=== PATIENT | female | born 1980 | race African-American/Black ===

== ENCOUNTER → 2018-11-04 | Outpatient (CLI) | payer BC ==
[~2018-11-04] MED LIST: ASPIRIN 325 MG TABLET ONE; CLOPIDOGREL BISULFATE 75 MG TABLET ONE; DIAZEPAM 10 MG TABLET. ONE; EPTIFIBATIDE BOLUS 2,000 MCG/ML 10ML VIAL. IV ONE; HEPARIN for SUB-Q USE 5,000 UNIT/ML VIAL. SQ ONE; IODIXANOL 270 MG/ML 100 ML VIAL. ONE; IV NORMAL SALINE 1000ML BAG 1,000 ML ONE; LIDOCAINE 1%/EPI 1:100,000 20 ML VIAL. ONE; MIDAZOLAM HCL/PF 2 MG/2 ML VIAL. ONE; fentaNYL PF VIAL 100 MCG/2 ML VIAL ONE; hydrALAZINE 20 MG/ML VIAL. ONE
--- NOTE | 2018-11-04 19:31 | PCVCINTER ---
EXAM: 1. AORTOGRAM AND BILATERAL LOWER EXTREMITY RUNOFF ANGIOGRAM 2. BILATERAL RENAL ANGIOGRAPHY 3. LEFT COMMON ILIAC STENT PLACEMENT. 4. LEFT EXTERNAL ILIAC STENT PLACEMENT. INDICATION: Peripheral arterial disease. Coronary artery disease. Nonhealing ulcer left lower extremity. Hypertension. Renal atherosclerosis. No prior catheter based angiographic study is available. A full diagnostic angiogram study is performed today and the decision to intervene is based on this diagnostic study. PROCEDURE: Procedure and risks of angiography and intervention including limb loss, stroke, and were discussed with the patient's family and consent obtained. The patient's right groin was prepped in the normal sterile fashion. IV conscious sedation was used throughout procedure with appropriate monitoring from 12:30 PM through 1:45 PM. Ultrasound was used to interrogate the right groin and showed the right common femoral artery to be patent. A permanent spot film was obtained. Under ultrasound guidance access into the right common femoral artery was obtained and a 5 Norwegian sheath was placed. Through this a 5 Norwegian flush catheter was placed into the abdominal aorta at the level of the renal arteries and AP aortogram was performed. Catheter was positioned at the aortic bifurcation and both oblique views of the pelvis were obtained. Catheter was positioned into the right external iliac artery and right leg runoff angiography was performed. Catheter was exchanged for a visceral catheter was placed into the right renal arteries and right renal angiograms obtained. Catheter was placed into the the left renal arteries and left renal angiograms were obtained. Catheter was advanced to the level of the left external iliac artery and left leg runoff angiography was obtained. Patient was given 4000 units of heparin. A 6 Norwegian crossover sheath was placed via the right groin to the level of the left common iliac artery. Stent placement across the areas of high-grade stenosis in the left external iliac artery was carried out with a 10 x 60 Smart control stent with subsequent dilatation to 8.0 mm. Stent placement across the areas of high-grade stenosis in the left common iliac artery was carried out with a 10 x 40 Smart control stent with subsequent dilatation to 8.0 mm. Catheters and wires removed. Sheath was removed and hemostasis obtained using the FISH device. No immediate complications. FINDINGS: Aortogram: The right kidney is atretic in only a very tiny right renal arteries present. Left renal artery is widely patent. Minimal plaque infrarenal abdominal aorta without significant stenosis. Pelvis: Right common and external iliac artery is widely patent. Diffuse high-grade stenosis left common and proximal external iliac artery. The right and left common femoral and profunda femoral arteries are patent. Right renal artery: Diminutive in size with a critical right kidney. Left renal artery: Minimal plaque proximal vessel does not cause significant stenosis. Right leg: Superficial femoral artery and popliteal artery are widely patent. Occlusion throughout the posterior tibial artery. Distal anterior tibial artery is occluded. Peroneal artery is widely patent to refill the distal most posterior tibial into moderate-sized plantar arteries. Occlusion of the dorsalis pedis. Left leg: Long segment chronic occlusion throughout the superficial femoral artery and popliteal artery as well as the trifurcation. The anterior tibial artery shows complete occlusion throughout. The mid and distal peroneal artery is occluded. There is refilling of the upper posterior tibial artery which then shows satisfactory patency into moderate-sized plantar arteries. Left common iliac artery: Following procedure as above vessel shows satisfactory patency. Left external iliac artery: Following procedure as above vessel shows good patency. IMPRESSION: Diffuse high-grade stenosis left common iliac artery and proximal left external iliac artery treated with stent placement with good patency restored. 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 The trifurcation with refilling of the proximal left posterior tibial artery which arises runoff into the foot. I am hopeful by improving the inflow the patient's left lower leg ulcer heel. Is not further discussions regarding revascularization of the left leg will be undertaken. LOC:OFFICE
== END | disposition home or self-care (01) ==
LOC: PCVCINTER 10:30
PROVIDERS: ATTEND Nuclear Medicine Nuclear Cardiology
DX: I70.248 Atherosclerosis of native arteries of left leg with ulceration of other part of lower leg (principal); L97.828 Non-pressure chronic ulcer of other part of left lower leg with other specified severity; I70.1 Atherosclerosis of renal artery; I25.10 Atherosclerotic heart disease of native coronary artery without angina pectoris; I10 Essential (primary) hypertension; I70.0 Atherosclerosis of aorta; I77.1 Stricture of artery; Z79.899 Other long term (current) drug therapy
CPT/HCPCS: 36252; 37221; 37223; 75716; 76937; 99152; 99153; C1725; C1751; C1760; C1769; C1876; C1894; J0690; J1644; J2250; J3010; J3490; J7030; Q9967; J0360; J1327

== ENCOUNTER → 2018-12-18 | Outpatient (CLI) | payer BC ==
--- NOTE | 2018-12-18 08:57 | PCVCIMAG ---
EXAM: BILATERAL CAROTID DUPLEX INDICATION: Carotid Occlusive Disease. FINDINGS: Doppler Measurements (centimeters per second): RIGHT: Peak CCA-82, Peak ECA-96, Diastolic ICA-36, Peak ICA-104, ICA/CCA Ratio-1.1. LEFT: Peak CCA-99, Peak ECA-112, Diastolic ICA-36, Peak ICA-87, ICA/CCA Ratio-0.9. RIGHT CAROTID: The carotid bulb has minimal plaque. The proximal internal carotid artery shows no significant stenosis. The common carotid artery shows no significant stenosis. The external carotid artery shows no significant stenosis. LEFT CAROTID: The carotid bulb has minimal plaque. The proximal internal carotid artery shows no significant stenosis. The common carotid artery shows no significant stenosis. The external carotid artery shows no significant stenosis. Antegrade flow in both vertebral arteries. IMPRESSION: No significant stenosis of the right internal carotid artery with minimal plaque. No significant stenosis of the left internal carotid artery with minimal plaque. LOC:[id number]
--- NOTE | 2018-12-18 09:05 | PCVCIMAG ---
EXAM: NONINVASIVE ARTERIAL EXAMINATION OF BOTH LOWER EXTREMITIES INCLUDING PRE AND POST EXERCISE PRESSURE MEASUREMENTS AND DOPPLER WAVEFORMS INDICATION: Peripheral Arterial Disease. Leg pain. FINDINGS: Right Brachial: 118 mm Hg. Right Dorsalis Pedis: 67 mm Hg. Right Posterior Tibial: 133 mm Hg. Right WILI = 1.09. Left Brachial: 122 mm Hg. Left Dorsalis Pedis: 0 mm Hg. Left Posterior Tibial: 100 mm Hg. Left WILI = 0.82. Post Exercise: Left Brachial 122 mm Hg. Right Posterior Tibial: 124 mm Hg. Left Anterior Tibial: 90 mm Hg. Right WILI = 1.02. Left WILI = 0.74. IMPRESSION: No resting ischemia in the right lower extremity. No exercise induced ischemia in the right lower extremity. Mild resting ischemia in the left lower extremity. Mild/moderate exercise induced ischemia in the left lower extremity. LOC:[id number]
--- NOTE | 2018-12-18 10:02 | PCVCIMAG ---
EXAM: AORTOILIAC DUPLEX INDICATION: Peripheral arterial disease FINDINGS: AORTA: Suprarenal aorta measures maximum diameter of 2.0 cm. There is not a fusiform infrarenal aortic aneurysm. The infrarenal aorta measures maximum diameter of 1.5 cm. No aortic stenosis. RIGHT COMMON ILIAC ARTERY: Maximum diameter is 1.0 cm. No significant stenosis. RIGHT EXTERNAL ILIAC ARTERY: No significant stenosis. LEFT COMMON ILIAC ARTERY: Maximum diameter is 1.3 cm. No significant stenosis. LEFT EXTERNAL ILIAC ARTERY: No significant stenosis. IMPRESSION: No abdominal aortic aneurysm. No aortoiliac stenosis seen. Previous left iliac stents maintaining good patency. LOC:[id number]
== END | disposition home or self-care (01) ==
LOC: PCVCIMAG 07:55
PROVIDERS: ATTEND Internal Medicine Cardiovascular Disease
DX: I65.23 Occlusion and stenosis of bilateral carotid arteries (principal); I73.9 Peripheral vascular disease, unspecified
CPT/HCPCS: 93880; 93924; 93978

== ENCOUNTER → 2018-12-31 | Outpatient (CLI) | payer BC ==
--- NOTE | 2018-12-31 11:16 | PCVCIMAG ---
APPROVED REPORT Study performed: 12/31/2018 10:19:35 Exam: Stress Echocardiogram Indication: Hyperlipidemia, PVD Patient Location: Echo lab Stress Nurse: Kerline Velasquez RN Status: routine Ht: 5 ft 6 in HR: 80 bpm BP: 104/80 mmHg Rhythm: NSR Medical History Medical History: PVD Exercise History: Sedentary Procedure The patient underwent an Exercise Stress Test using the Mauricio Protocol. Blood pressure, heart rate, and EKG were monitored. An Echocardiogram was performed by transportation technician in four stages in quad fashion. At peak stress, four selected images were obtained and placed side by side with resting images for comparison. Stress Test Details Stress Test: Exercise stress testing was performed using a Mauricio protocol. HR Resting HR: 80 bpmMax Heart Rate (APMHR): 180 bpm Max HR Achieved: 142 bpmTarget HR (85% APMHR): 153 bpm % of APMHR: 78 Recovery HR: 100 bpm HR response to stress: Normal HR response to stress BP Resting BP: 104/80 mmHg Max BP: 124/80 mmHg Recovery BP: 120/80 mmHg BP response to stress: Normal blood pressure response to stress. ECG Resting ECG: Sinus Rhythm Stress ECG: Sinus Rhythm Recovery ECG: Sinus Rhythm Clinical Reason for Termination: Leg pain/Claudication Stress Symptoms: Leg Fatigue Highest Stage Achieved: Stage 2: 2.5 mph at 12% grade. Exercise capacity: 9.00 METs Overall Exercise Capacity for Age: Poor Scale: Sedentary Angina Score: None Pre-Stress Echo The resting Echocardiogram showed normalnormal left ventricular contractility with an estimated Ejection Fraction of about 55-60%. Normal wall motion in all segments on baseline images. Post-Stress Echo The stress Echocardiogram showed normal left ventricular contractility with an estimated Ejection Fraction of about 60-65%. Normal augmentation of wall motion in all segments on post stress images. Clinical No clinical or ECG evidence for ischemia. Conclusion Clinical Response: Non-ischemic Exercise Capacity: Below Average Stress ECG Response: Non-ischemic Stress Echo Images: Non-ischemic The left ventricle is normal in size and wall thickness in both the rest and stress images. Other Information Study Quality: Good <Conclusion> The left ventricle is normal in size and wall thickness in both the rest and stress images.
== END | disposition home or self-care (01) ==
LOC: PCVCIMAG 10:44
PROVIDERS: ATTEND Internal Medicine Cardiovascular Disease
DX: E78.5 Hyperlipidemia, unspecified (principal); I73.9 Peripheral vascular disease, unspecified; I77.9 Disorder of arteries and arterioles, unspecified
CPT/HCPCS: 93325; 93351

== ENCOUNTER → 2019-07-08 | Outpatient (CLI) | payer BC ==
--- NOTE | 2019-07-08 14:36 | PCVCIMAG ---
EXAM: AORTOILIAC DUPLEX INDICATION: Peripheral arterial disease FINDINGS: AORTA: Suprarenal aorta measures maximum diameter of 2.0 cm. There is not a fusiform infrarenal aortic aneurysm. The infrarenal aorta measures maximum diameter of 2.3 cm. No aortic stenosis. RIGHT COMMON ILIAC ARTERY: Maximum diameter is 1.0 cm. No significant stenosis. RIGHT EXTERNAL ILIAC ARTERY: No significant stenosis. LEFT COMMON ILIAC ARTERY: Maximum diameter is 1.0 cm. No significant stenosis. LEFT EXTERNAL ILIAC ARTERY: No significant stenosis. IMPRESSION: No abdominal aortic aneurysm. No aortoiliac stenosis seen. Previous left iliac stents maintaining satisfactory patency. LOC:[id number] [id number]
== END | disposition home or self-care (01) ==
LOC: PCVCIMAG 12:52
PROVIDERS: ATTEND Internal Medicine Cardiovascular Disease
DX: I73.9 Peripheral vascular disease, unspecified (principal); E78.00 Pure hypercholesterolemia, unspecified; E11.9 Type 2 diabetes mellitus without complications; Z87.891 Personal history of nicotine dependence
CPT/HCPCS: 93978